=== PATIENT | male | born 1950 | race Caucasian/White ===

== ENCOUNTER → 2016-06-07 | Outpatient (CLI) | payer OTHER, BC ==
[~2016-06-07] VITALS: Ht 172.7 cm; Wt 75.3 kg
[~2016-06-07] MED LIST: ACCUPRIL40 MG PO; AMLODIPINE BESYL5 MG PO; ASPIRIN325; ASPIRIN81 M2 PO; ATORVASTATIN CA10 MG PO; CALCIUM; CENTRUM TABLET1 EACH PO; CRESTOR10 MG PO; CYCLOBENZAPRINE10 MG PO; FENTANYL PA12 MCG/HR TD; FISHOIL; FOSAMAX 70 MG T70 M1 PO; HYDROCODON-ACE1 EAC5 PO; HYDROCODONE-AP1 EAC6 PO; LOPRESSOR 50 MG50 M1 PO; METHADONE HCL5 MG PO; MS CONTIN15 MG PO; NABUMETONE 750750 M1 PO; NEURONTIN600 MG PO; NORCO 10-325 T1 EACH PO; OMEPRAZOLE40 MG PO; OXYCODONE-ACET1 EAC2 PO; OXYCONTIN10 M1 PO; PERCOCET 10-321 EACH; SKELAXIN 800 M800 M1 PO; TOPAMAX 25 MG T25 M1 PG
--- NOTE | ~2016-06-07 | HPC ---
[facility] [address] [address] PAIN MANAGEMENT CONSULTATION Name: REMINGTONNAVID Calero Room #: REG [facility].#: [id number] Admission: 06/07/16 Attend Phys: Abhjiit Fernando MD Discharge: Date of : 48 Report #: [id number] THIS REPORT FOR: //name// CC: Aris Fernando DATE OF SERVICE: 06/07/2016 Follow up visit for chronic pain, multiple spinal surgeries. Management of high risk medication. The patient returns to pain clinic in followup today for his medication. He has been doing exceptionally well. He was last seen in May by my partner, Dr. Alcocer. He has really made a lot of progress over the last 2-3 years. He has been able to travel to [place]. He recently took a 2-week trip through the enjoying trips to [place] including [facility], [place], and throughout the [facility] coast. He seems very positive and upbeat and very pleased with the degree of pain relief that he is receiving from his low dose of methadone. He has been able to wean himself substantially down off of hydrocodone one 5/325 tablet for breakthrough, he used about every 3-4 days. I provided him with a bottle of 30 tablets, again very effective low dose baseline medication. In addition to his medication, he feels that the orthotics that were provided for him have made a huge difference. Good control of his feet has allowed him to ambulate more, the ambulation I think in turn has created a better dynamics throughout his spine and improved core strengthening. All in all, he is just really doing quite well on his current regimen. MEDICATIONS: Include methadone 5 mg b.i.d., nabumetone 750 twice a day, rare hydrocodone for breakthrough, gabapentin 600 mg 4 times daily, metoprolol, quinapril, amlodipine, and Topamax. PHYSICAL EXAMINATION: A very pleasant, upbeat, easy going gentleman. Moves quickly and easily from sitting to standing position. He is on soft sole shoes. He walks without antalgic features. Examination of spinal scars is negative. All are nontender. He has good range of motion in the upper and lower extremities. Only mild myofascial trigger points throughout the trapezius. IMPRESSION: 1. Chronic intractable pain with cervicalgia, well controlled under current medication regimen. We will renew his medications under terms of the opioid agreement. 2. Post-laminectomy syndrome. 3. History of generalized osteoarthritis involving hips and knees. Well controlled with nabumetone. [address] [address] PAIN MANAGEMENT CONSULTATION Name: NAVID MACEDO Room #: REG [facility] [place].#: [id number] Admission: 06/07/16 Attend Phys: Abhijit Fernando MD Discharge: Date of : 48 Report #: [id number] 4. Hypertension, Dr. Aris Santana. PLAN: Follow up in the pain clinic in 3 months. Medications were provided with release date prescriptions for methadone 4 and 8 weeks. Importance of safeguarding medications stressed once again and we talked again today about the opioid crisis issues in the [place]. <ELECTRONICALLY SIGNED> By: Abhijit Fernando MD 06/09/16 1329 [id number] Abhijit Fernando MD /nt
[2016-06-07 09:01] VITALS: BP 111/68
== END | disposition home or self-care (01) ==
LOC: PAIN 06:52
DX: M96.1 Postlaminectomy syndrome, not elsewhere classified (principal); M54.2 Cervicalgia; M19.90 Unspecified osteoarthritis, unspecified site; I10 Essential (primary) hypertension; Z98.890 Other specified postprocedural states; Z87.891 Personal history of nicotine dependence

== ENCOUNTER → 2016-06-15 | Outpatient (CLI) | payer OTHER, BC ==
--- NOTE | ~2016-06-15 | P ---
[facility] [place] [address] PROCEDURE REPORT Name: REMINGTONNAVID Calero Room #: REG [facility]#: [id number] Admission: 06/15/16 Attend Phys: Aris Spicer MD Discharge: Date of : 48 Report #: [id number] THIS REPORT FOR: //name// CC: Aris Spicer BRIEF HISTORY: The patient is a 65-year-old male with history of colon polyps for high risk screening colonoscopy. PREOPERATIVE DIAGNOSIS: High risk screening colonoscopy. POSTOPERATIVE DIAGNOSES: 1. Diminutive polyp, proximal ascending colon. 2. Moderate sigmoid diverticulosis coli. 3. Small internal hemorrhoids. MEDICATIONS: Deep sedation with propofol per anesthesia. SPECIMEN: Proximal ascending colon. ESTIMATED BLOOD LOSS: 3 mL. PROCEDURE: Colonoscopy to cecum and terminal ileum with biopsy. FINDINGS: Prior to propofol sedation, procedure of colonoscopy discussed with the patient as well as potential risks, benefits, and complications. He indicates he understands and desires to proceed. With the patient in left lateral decubitus position, digital examination was completed, which revealed no abnormalities. Subsequently, the Privaris video colonoscope was introduced into the rectum and advanced under direct vision to the cecum. Done with minimal difficulty. The cecum was identified by the ileocecal valve and the appendiceal orifice. I was able to visualize the distal segment of terminal ileum, which was inspected and noted unremarkable. At that point, the scope was slowly withdrawn and careful circumferential views obtained including retroflexing the scope in the ascending colon. Upon slow withdrawal of the scope, the prep was noted to be good. The mucosa was within normal limits, normal vascular pattern, and normal light reflex. In the proximal ascending colon, a diminutive polyp was seen and removed by biopsy. As we withdrew the scope, no additional polypoid lesions were seen. No additional abnormalities were noted until the distal sigmoid colon was reached at which point moderate diverticular disease was identified without endoscopic evidence of diverticulitis. Scope was withdrawn in the rectum. Upon retroflexion, no additional abnormalities were seen. Scope was withdrawn. The patient tolerated the procedure well. [address] [address] PROCEDURE REPORT Name: NAVID MACEDO Room #: REG [facility] Saunders#: [id number] Admission: 06/15/16 Attend Phys: Aris Spicer MD Discharge: Date of : 48 Report #: [id number] CONDITION OF THE PATIENT UPON DISCHARGE: Following procedure, the patient drowsy, aroused, conversant and will be discharged home when fully ambulatory. INSTRUCTIONS TO THE PATIENT AND FAMILY AT THE TIME OF DISCHARGE: One diminutive polyp identified and removed as described above. We will follow up on the path and make a surveillance recommendation. If this is an adenoma, he should return in 5 years. If it is hyperplastic, then 10 years would be indicated. I would suggest high fiber diet for the diverticular disease and hemorrhoids. Last colonoscopy was approximately 5 years ago. Withdrawal time from the cecum was 16 minutes. <ELECTRONICALLY SIGNED> By: Aris Spicer MD 06/15/16 1225 [id number] 1044 Aris Spicer MD /nt
--- NOTE | ~2016-06-15 | S ---
[facility] [place] [address] SURGICAL PATH RPT PROCEDURE Name: NAVID MACEDO Room #: REG [facility] M.R.#: [id number] Admission: 06/15/16 Date of : 48 Discharge: Report #: [id number] Path Case #: [id number] PATHOLOGY REPORT COLLECTION DATE: 06/15/2016 RECEIVED DATE: 06/15/2016 SUBMITTING PHYS: Dr. Aris Spicer OTHER PHYS: Dr. Aris Santana SPECIMEN(S) RECEIVED: A.Polyp proximal ascending colon * * * * * * * * * * * * FINAL DIAGNOSIS: "Polyp proximal ascending colon", biopsy: - Tubular adenoma; no high grade dysplasia. - Prominent reactive appearing lymphoid aggregates also present. (CLW:all; d/t: 06/16/2016) PATHOLOGIST: Tala Prieto M.D. REPORT ELECTRONICALLY SIGNED BY: Tala Prieto M.D. DATE/TIME: 06/16/2016 12:22 * * * * * * * * * * * * GROSS PATHOLOGY: Received in formalin labeled "Navid Macedo and polyp proximal ascending colon," are 3 segments of sinclair soft tissue measuring 1.0 x 0.2 x 0.2 cm in aggregate dimensions and ranging from 0.2 to 0.5 cm in maximum dimension. The specimen is submitted entirely in cassette A1. (TTL; 06/15/2016) CLINICAL HISTORY: History of colon polyps INITIAL CPT CODE(S): A; 03640 Professional services performed by [facility] at [facility] [address] [place] [address] Technical services performed by [facility] at [address] [place] [address] [id number] [facility] [address] [place] [address] SURGICAL PATH RPT PROCEDURE Name: NAVID MACEDO Room #: REG [facility] Saunders#: [id number] Admission: 06/15/16 Date of : 48 Discharge: Report #: [id number] Path Case #: [id number] [facility] [address] [address] PHONE: [phone] DIRECTOR: Deon Brown M.D. * * * END OF REPORT * * *
== END | disposition home or self-care (01) ==
LOC: GI 08:09
DX: Z12.11 Encounter for screening for malignant neoplasm of colon (principal); D12.2 Benign neoplasm of ascending colon; K57.30 Diverticulosis of large intestine without perforation or abscess without bleeding; K64.8 Other hemorrhoids; Z86.010 Personal history of colon polyps
CPT/HCPCS: 62110; 62900

== ENCOUNTER → 2016-09-19 | Outpatient (CLI) | payer OTHER, BC ==
[~2016-09-19] VITALS: Ht 175.3 cm; Wt 77.0 kg
[~2016-09-19] MED LIST changes: +LOVASTAT10 PO
--- NOTE | ~2016-09-19 | HPC ---
[facility] [address] [place] [address] PAIN MANAGEMENT CONSULTATION Name: REMINGTONNAVID Calero Room #: REG [facility] M.R.#: [id number] Admission: 09/19/16 Attend Phys: Otto Alcocer DO Discharge: Date of : 48 Report #: [id number] THIS REPORT FOR: //name// CC: PRAVEEN Fernando MD DATE OF SERVICE: 09/19/2016 DATE OF SERVICE: 09/19/2016 CHIEF COMPLAINT: Chronic back pain status post multiple spinal surgeries. HISTORY OF PRESENT ILLNESS: As you know, patient is a 66-year-old male followed by my partner, Dr. Abhijit Fernando for chronic pain issues, unresolved by multiple spinal surgeries and residual pain issues. He is taking low dose methadone 5 mg twice a day utilizing a hydrocodone 5/325, no more than 1 a day. He is also using cyclobenzaprine for pain control secondary to muscle spasming. He returns today in followup visit requesting one month of medication, so that he can make his next appointment with Dr. Abhijit Fernando. Due to scheduling conflicts, the patient was placed on my schedule today to provide a 1 month prescription for the patient to follow up with Dr. Fernando next month. The patient denies new injury new trauma that may have led to symptoms continuing. ALLERGIES: CONTRAST AGENT IODINE. CURRENT MEDICATIONS: Methadone 10 mg twice day, hydrocodone 5/325 one tab per day p.r.n., cyclobenzaprine 10 mg twice a day, lovastatin 10 mg per day, nabumetone 750 mg twice a day, aspirin 81 mg per day, gabapentin 600 mg 4 times a day, omeprazole 40 mg per day, metoprolol 50 mg once a day, Accupril 40 mg per day, amlodipine 5 mg per day, topiramate 25 mg once a day. SOCIAL HISTORY: The patient denies tobacco, alcohol, IV or illicit drug use. He is unaccompanied today. PHYSICAL EXAMINATION: VITAL SIGNS: Blood pressure 116/68, pulse 70, respiratory rate 16, unlabored. The patient is 100% on room air. Height 5 feet 9 inch tall, weight 169.8 pounds, BMI calculated 25.1. GENERAL: Well developed, well nourished, well hydrated, 66-year-old male. He appears stated age. He is placing current pain score at approximately 1-2/10. HEENT: Normocephalic, atraumatic. Pupils equal, round, reactive to light. He has an antalgic gait. EXTREMITIES: Show no clubbing, no cyanosis, and no edema. MUSCULOSKELETAL: Multiple surgical scars over the lower lumbar spine. [address] [address] PAIN MANAGEMENT CONSULTATION Name: NAVID MACEDO Room #: REG [facility]#: [id number] Admission: 09/19/16 Attend Phys: Otto Alcocer DO Discharge: Date of : 48 Report #: [id number] Palpatory tenderness over the paraspinal musculature of lower lumbar region. No spinous process tenderness. ASSESSMENT: 1. Chronic low back pain. 2. Post-laminectomy syndrome. 3. Generalized osteoarthritis. 4. Chronic intractable pain. 5. Management of high risk medications. PLAN: 1. The patient has returned to our clinic today for one month worth of medication management. The patient is typically follows with Dr. Abhijit Fernando receiving methadone, hydrocodone and cyclobenzaprine for pain control. He states this is working very well. The formula provides good analgesic benefit providing 1-2/10 pain generally. He is denying any side effects to medication and wishes to continue the medication at this time. He was provided 3 months' prescriptions last visit. He was placed on my schedule today due to scheduling conflicts. He will be providing a 1 month prescription with a return to see Dr. Abhijit Fernando October 02. 2. The patient was provided a prescription of methadone 5 mg dose 1 tab p.o. b.i.d., given #60 tablets, no refills. 3. The patient was provided a prescription of hydrocodone 5/325 one tab p.o. every day p.r.n. pain, #30, no refills. 4. The patient was provided a prescription of cyclobenzaprine 10 mg dose 1-2 tabs p.o. at bedtime, #60, no refills. 5. The patient return to see Dr. Abhijit Fernando on schedule date of 10/05/2016 for medication management. By: 0853 [id number] Otto Alcocer, /nt
[2016-09-19 08:29] VITALS: BP 116/68
== END ==
LOC: PAIN 06:51
DX: M15.8 Other polyosteoarthritis (principal); M96.1 Postlaminectomy syndrome, not elsewhere classified; I10 Essential (primary) hypertension; Z87.891 Personal history of nicotine dependence

== ENCOUNTER → 2016-10-05 | Outpatient (CLI) | payer OTHER, BC ==
[~2016-10-05] VITALS: Ht 172.7 cm; Wt 75.0 kg
--- NOTE | ~2016-10-05 | HPC ---
[facility] [place] [address] PAIN MANAGEMENT CONSULTATION Name: NAVID MACEDO Room #: REG [facility].#: [id number] Admission: 10/05/16 Attend Phys: Abhijit Fernando MD Discharge: Date of : 48 Report #: [id number] THIS REPORT FOR: //name// CC: Aris Fernando DATE OF SERVICE: 10/05/2016 DATE OF REGISTRATION: 10/05/2016. REASON FOR VISIT: Followup visit for chronic pain with multiple spinal surgeries. SUBJECTIVE: The patient has been on a longstanding opioid agreement in our clinic. He was seen just a month ago by my partner who provided him with 1 month of medication. I typically provide him with 3 months of medication as long as there are no red flags, and there are certainly none at this time. His pain impact scores have been markedly reduced by the use of a regular dose of pain medication, which he takes carefully under terms of our agreement. In addition, he uses cyclobenzaprine 2 tablets at bedtime. I have talked to Dr. Santana about this, and we have agreed that this regimen is reasonable. He has no significant side effects. He is here today reporting that his activities are good, although he finds that it is a little disappointing that he cannot do quite as much heavy lifting as he used to. 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 He has had to require assistance, which I think is prudent. Today, he reports his pain is 0/10. Medication is working extremely well. We will continue the same dose. PHYSICAL EXAMINATION: GENERAL: Pleasant, alert and oriented, without signs of overmedication. VITAL SIGNS: Blood pressure 104/71, heart rate 64. BMI is 25. EXTREMITIES: He moves easily from a standing position. He is not at fall risk. His gait is stable. IMPRESSION: 1. Chronic intractable low back pain status post multiple lumbar and cervical surgeries. 2. Management of high risk medications. PLAN: I renewed his medications under terms of our opioid agreement. He was given methadone 5 mg b.i.d., hydrocodone 5/325 one tablet as needed for [address] [address] PAIN MANAGEMENT CONSULTATION Name: NAVID MACEDO Room #: REG [facility].#: [id number] Admission: 10/05/16 Attend Phys: Abhijit Fernando MD Discharge: Date of : 48 Report #: [id number] breakthrough pain daily. He does not take this every day and cyclobenzaprine 10 mg 2 tablets at bedtime. By: [id number] Abhijit Fernando MD /nt
[2016-10-05 14:50] VITALS: BP 104/71
== END | disposition home or self-care (01) ==
LOC: PAIN 07:34
DX: G89.29 Other chronic pain (principal)

== ENCOUNTER → 2017-01-04 | Outpatient (CLI) | payer OTHER, BC ==
[~2017-01-04] VITALS: Ht 175.3 cm; Wt 75.4 kg
[~2017-01-04] MED LIST changes: +LYRICA 75 MG CA75 MG PO
--- NOTE | ~2017-01-04 | HPC ---
[facility] [place] [address] PAIN MANAGEMENT CONSULTATION Name: REMINGTONNAVID Room #: REG [facility].#: [id number] Admission: 01/04/17 Attend Phys: Abhijit Fernando MD Discharge: Date of : 48 Report #: [id number] THIS REPORT FOR: //name// CC: Aris Fernando DATE OF SERVICE: 01/04/2017 Follow up visit for chronic pain following multiple spinal surgeries. The patient is in the clinic today for his medication. I see him in 3-month intervals. He is under an opioid agreement, which he follows very carefully and closely. He was last seen 3 months ago. MEDICATIONS: Methadone 5 mg twice daily, hydrocodone 5/325 t.i.d. and cyclobenzaprine 10 mg 2 tablets taken at bedtime. He has had no problems with the medication. Denies any significant side effects. His pain score is 1. He has been very stable for a number of months now. He talked to Dr. Santana about his use of gabapentin, which is at maximum dose. Because of a short period of aggravation of his left leg pain, Dr. Santana placed him on Lyrica 75 mg b.i.d., which worked very nicely. Pain is now gone and we talked today about tapering off the Lyrica, going back on it if necessary. PHYSICAL EXAMINATION: He is bright and alert, does not seem depressed or anxious at all. His blood pressure is 106/67, heart rate is 73, and BMI of 24.5. Back is minimally tender. He has some limited range of motion due to his previous fusion. IMPRESSION: 1. Chronic low back pain status post multiple surgeries involving the lumbar region and cervicalgia following cervical fusion. 2. Management of high risk medications under terms of an opioid agreement. The importance of safeguarding all medications discussed. A followup visit scheduled in the pain clinic in 3 months. We reflected today on the remarkable progress he has made since he was first seen in our clinic. If I had unable to project positive outcome for him in 2011, something like this exclamation point. We will continue with his medications as long as they continue to meet our goals of providing good analgesia with minimal side effects. He is safeguarding his medications carefully as we have reviewed the important concerns regarding opioid crisis in [place]. By: [id number] 20 Abhijit Fernando MD /nt
[2017-01-04 10:50] VITALS: BP 106/67
== END | disposition home or self-care (01) ==
LOC: PAIN 07:18
DX: G89.29 Other chronic pain (principal); M54.2 Cervicalgia; Z98.890 Other specified postprocedural states; Z79.891 Long term (current) use of opiate analgesic; Z87.891 Personal history of nicotine dependence; Z79.82 Long term (current) use of aspirin; Z79.899 Other long term (current) drug therapy

== ENCOUNTER → 2017-08-01 | Outpatient (CLI) | payer OTHER, BC ==
[~2017-08-01] VITALS: Ht 175.3 cm; Wt 74.8 kg
--- NOTE | ~2017-08-01 | HPC ---
[facility] [place] [address] PAIN MANAGEMENT CONSULTATION Name: REMINGTONNAVID Calero Room #: REG [facility]..#: [id number] Admission: 08/01/17 Attend Phys: Abhijit Fernando MD Discharge: Date of : 48 Report #: [id number] THIS REPORT FOR: //name// CC: PRAVEEN Fernando DATE OF SERVICE: 08/01/2017 Followup visit for medication management. I am seeing the patient for the first time in several months. He saw my partner, Dr. Christiano Bradshaw back in April. He continues to do exceptionally well. He is back at work. His pain is well controlled. He is looking forward to spring and summer in hopes that he may be able to return to some gardening. He is grateful for the medications, which we provide for him, which have made a big difference in helping control his pain. He uses cyclobenzaprine at night 10 mg 2 tablets to aid with sleep. His pain is controlled nicely with methadone 5 mg twice a day and hydrocodone 5/325 one tablet taken in anticipation of aggressive activities. With this, he has been unable to keep his pain score at a level of 2. PQRS review shows that he has only mild osteoarthritis. His BMI is kept under good control and he looks fit with a BMI of 24.4. Dr. Santana treats him for hypertension. He has a blood pressure of 134/82, heart rate 69. Pain intensity 2. Opioid risk tool was reviewed and he has a low risk of addiction potential. He is on an opioid contract, which was signed in 11/2015 and reviewed at each visit. He understands the importance of safeguarding all of his medications and managing side effects. IMPRESSION: 1. Chronic low back pain and cervicalgia status post multiple surgeries involving the lumbar and cervical region with cervical fusion. He had some complications of infection after a cervical fusion, but has recovered nicely. 2. Management of high risk medications under terms of written opioid agreement. PLAN: Follow up in the pain clinic in 3 months. I have renewed his medications and reviewed all other medications before discharge. <ELECTRONICALLY SIGNED> By: Abhijit Fernando MD 09/10/17 1408 1716 [id number] Abhijit Fernando MD /nt
[2017-08-01 13:48] VITALS: BP 134/82
== END ==
LOC: PAIN 07-30 11:35
DX: G89.29 Other chronic pain (principal); M54.5 Low back pain; M54.2 Cervicalgia; F11.90 Opioid use, unspecified, uncomplicated; Z98.890 Other specified postprocedural states

== ENCOUNTER → 2018-08-01 | Outpatient (CLI) | payer OTHER ==
[~2018-08-01] VITALS: Ht 172.7 cm; Wt 73.1 kg
[~2018-08-01] MED LIST changes: +FLEXERIL PO
--- NOTE | ~2018-08-01 | HPC ---
[facility] [address] [place] [address] PAIN MANAGEMENT CONSULTATION Name: REMINGTONNAVID Abdias Room #: REG [facility] M.R.#: [id number] Admission: 08/01/18 ������������������ Attend Phys: Savannah Hernandez Discharge: ������������������ Date of : 48 Report #: [id number] THIS REPORT FOR: //name// CC: Savannah Barroslap DATE OF SERVICE: 08/01/2018 CHIEF COMPLAINT: Chronic back pain, post-laminectomy with fusion. HISTORY OF PRESENT ILLNESS: The patient returns to the pain clinic today for a refill of his medications for his ongoing low back and bilateral leg pain. He tells me that he is doing well today. His pain score is about 2-3. He has been slowly gaining some weight from his lung infection that he had, said he is feeling much better. Said the weather is making his pain worse on some days that his medications are very helpful. He denies any problems with constipation or daytime sleepiness. He would like a refill of his medications today. CURRENT ALLERGIES: IV DYE AND IODINE. MEDICATION LIST: Methadone 5 mg b.i.d., hydrocodone 5 mg p.r.n., Flexeril 10 mg 1 to 2 tablets at bedtime, Lyrica 75 mg daily, lovastatin 10 mg daily, nabumetone 750 mg b.i.d., aspirin 81 mg daily, gabapentin 600 mg 4 times a day, omeprazole 40 mg daily, Lopressor 50 mg daily, quinapril 40 mg daily, amlodipine 5 mg daily, Topamax 25 mg daily. PQRS: 1. He has a history of osteoarthritis in his lower backs and in his bilateral hips. He denies any rheumatoid arthritis. 2. Height is 5 feet 8 inches, weight is 161. BMI is 24.5. 3. Vital signs: Blood pressure 109/62, pulse is 53, respirations 14, oxygen sat 98%. 4. Pain score 2-3/10. 5. Fall risk: Denies dizziness, does not need help walking or standing and has not fallen in the last 3 months. 6. The patient is not on a blood thinner, does take antihypertensive medicines. 7. Opioid therapy is greater than 6 weeks; therefore, an opioid signed contract is on the chart. 8. Risk assessment tool is low. His functional assessment is . 9. Recreational drug use: The patient denies. He is a former smoker and does not drink alcohol. We checked the prescription monitoring system, the patient is filling appropriately, doctors within our clinic. We will check a buccal drug screen on his next visit. He tells me he safeguards his medicine at all times. [address] [address] PAIN MANAGEMENT CONSULTATION Name: NAVID MACEDO Room #: REG [facility] Saunders#: [id number] Admission: 08/01/18 ������������������ Attend Phys: Savannah Hernandez Discharge: ������������������ Date of : 48 Report #: [id number] PHYSICAL EXAMINATION: GENERAL: This is a well-developed, well-nourished 67-year-old gentleman who appears his stated age. He is alert and orientated x 3. He is a good historian. HEENT: Normocephalic, atraumatic. Extraocular eye muscles are intact. Mucous membranes are moist and hearing is adequate. NECK: Without JVD or adenopathy. MUSCULOSKELETAL: The patient moves from sitting to standing without difficulty. Able to walk and ambulate in the room without difficulty. His lower extremity strength judged to be 5/5 in all major muscle groups. IMPRESSION: 1. Chronic back pain, post-laminectomy with fusion. 2. History of right-sided pleural effusion. 3. Cervicalgia, status post multiple surgeries with cervical fusion. 4. Opioid-induced constipation. 5. Medical management under written opioid agreement. We reviewed the fact that opiate medications are being used to provide analgesia adequate to support activities of daily living, not attempting to achieve a specific pain score on the 0-10 Visual Analog Scale. The current opiate medications are providing sufficient analgesia to allow the patient to participate in activities of daily living. The patient is not exhibiting any aberrant behavior suggestive of drug diversion. The patient is not having any adverse reactions to medications. The patient is not suffering from daytime somnolence or mental acuity changes. The patient is managing opiate-induced constipation with appropriate sfjv-rfg-oerxitz agents and dietary considerations. The patient was counseled on concern for caution with operating a motor vehicle while using opiate medications. A physical exam was performed and the patient's functional status was evaluated. All patients with back pain were advised against the bed rest greater than 4 days and were advised to return to normal activities. Pain score assessment was noted and the treatment plan was reviewed with the patient. All current medications, both prescribed and OTC were reviewed and reconciled on the electronic medical record. Tobacco screening was accomplished and smoking cessation was advised when indicated. BMI was noted and diet/exercise modification was recommended for all patients following outside normal parameters. I reviewed with the patient today their responsibilities to safeguard prescription medications, reviewed their responsibility to utilize medications only as prescribed by the physician. They are to seek and receive pain medications only from 1 physician group ([facility]). They are to use 1 pharmacy and keep the clinic informed if they change pharmacies. Their responsibilities include making followup visits in a timely fashion and to avoid [address] [address] PAIN MANAGEMENT CONSULTATION Name: NAVID MACEDO Room #: REG [facility].R.#: [id number] Admission: 08/01/18 ������������������ Attend Phys: Savannah PAIZ David Discharge: ������������������ Date of : 48 Report #: [id number] abrupt discontinuation of medication usage. Their responsibilities further include bringing their medications (bottles from the pharmacy with residual pills) to the visit for possible confirmation of pill counts and the patient understands it is their responsibility to submit to random drug screens to ensure both that the medications prescribed are present, and that no other controlled substances are present. All prescriptions provided today were generated electronically. PLAN: 1. We reviewed treatment options with the patient today. The patient tells me he has been doing well with his current methadone dose to 5 mg twice a day and occasional hydrocodone. His current MME is 40 MME per day, scripts given for 3 months of his methadone and 30 tablets of his hydrocodone. 2. We discussed him weaning off his Flexeril. The patient tells me he has not tried this yet. He said, "I will be more intentional of doing this in the next few months." Script given for Flexeril 10 mg #60 to take one to two tablets at bedtime with [address] Abhijit Fernando did come and see the patient and collaborated with care today. The patient will be seen in 3 months. At that time, we will do a drug screen on this patient. ��������������������������������������������� ���������������������������������������� By: ��������������������������������������������� 1205 0312 Savannah stevens
[2018-08-01 10:00] VITALS: BP 109/62
--- NOTE | 2018-08-01 10:19 | NUR ---
Pain Clinic Assessment: 1. History of Osteoarthritis: Not Applicable History of Rheumatoid Arthritis: Not Applicable 2. Height: 5 ft. 8 in. 172.7 cm. Weight: 161.2 lb. oz. 73.120 kg. Patient's BMI: 24.5 3. Vital Signs: BP: 109/62 Pulse: 53 Resp: 14 Temp: 02 Sat: 98 ECG Mon: 4. Pain Intensity: 2-3 5. Fall Risk: Dizziness: N Needs help standing or walking: N Fallen in the last 3 months: N Fall risk comments: 6. Patient on Blood Thinner: None 7. History of Hypertension: Y 8. Opioid Therapy greater than 6 weeks: Y Opiate Contract Signed: 11/24/15 9. Risk Assessment Tool Provided: Opioid Risk Tool 10. Functional Assessment Tool: 11. Recreational Drug Use: Never Drug Type: Tobacco Use: Former Smoker Tobacco Type: Amount or Packs/day: How Many Years: Alcohol Use: No Frequency: Quant:
== END ==
LOC: PAIN 07:07
DX: M43.26 Fusion of spine, lumbar region (principal); M96.1 Postlaminectomy syndrome, not elsewhere classified; M43.22 Fusion of spine, cervical region; M54.2 Cervicalgia; F11.99 Opioid use, unspecified with unspecified opioid-induced disorder; Z87.09 Personal history of other diseases of the respiratory system; Z79.899 Other long term (current) drug therapy

== ENCOUNTER → 2018-11-04 | Outpatient (CLI) | payer OTHER, BC ==
[~2018-11-04] VITALS: Ht 172.7 cm; Wt 71.6 kg
[2018-11-04 09:01] VITALS: BP 104/63
--- NOTE | 2018-11-04 09:23 | NUR ---
Pain Clinic Assessment: 1. History of Osteoarthritis: Not Applicable History of Rheumatoid Arthritis: Not Applicable 2. Height: 5 ft. 8 in. 172.7 cm. Weight: 157.8 lb. oz. 71.578 kg. Patient's BMI: 24.0 3. Vital Signs: BP: 104/63 Pulse: 72 Resp: 16 Temp: 02 Sat: 97 ECG Mon: 4. Pain Intensity: 2-3 5. Fall Risk: Dizziness: N Needs help standing or walking: N Fallen in the last 3 months: Y Fall risk comments: 6. Patient on Blood Thinner: None 7. History of Hypertension: Y 8. Opioid Therapy greater than 6 weeks: Y Opiate Contract Signed: 11/24/15 9. Risk Assessment Tool Provided: low-0 10. Functional Assessment Tool: 11. Recreational Drug Use: Never Drug Type: Tobacco Use: Former Smoker Tobacco Type: Amount or Packs/day: How Many Years: Alcohol Use: No Frequency: Quant:
--- NOTE | 2018-11-05 09:15 | HPC ---
[facility] [address] [place] [address] PAIN MANAGEMENT CONSULTATION Name: NAVID MACEDO Room #: REG [facility]..#: [id number] Admission: 11/04/18 ������������������ Attend Phys: Savannah Hernandez Discharge: ������������������ Date of : 48 Report #: [id number] THIS REPORT FOR: //name// CC: Savannah Santana DATE OF SERVICE: 11/04/2018 CHIEF COMPLAINT: Chronic back pain, post-laminectomy with fusion and neck pain. HISTORY OF PRESENT ILLNESS: This is a very pleasant 68-year-old gentleman who returns to the pain clinic today for refill of his medications for his ongoing lower back pain and complaints of neck pain today. He tells me that he did fall off a ladder a few weeks ago. He is slowly getting better. He did have to take a few extra hydrocodone initially after the fall that he is not taking those any longer. He usually takes those very sparingly. He tells me he does have a sore on his leg that is slowly healing. He also complains of low back pain today. His pain score is 2/3, worse with lifting anything heavy and the weather changes that the medications are very helpful in controlling his pain. ALLERGIES: CONTRAST DYE AND IODINE. MEDICATIONS: Methadone 5 mg b.i.d., hydrocodone 5/325 sparingly, Flexeril 10 mg at bedtime, Lyrica 75 mg daily, lovastatin 10 mg daily, nabumetone 750 mg, 81 mg aspirin, gabapentin 600 mg, omeprazole 40 mg, Lopressor 50 mg, Accupril 40 mg, amlodipine 5 mg, and Topamax 25 mg. PQRS: 1. He has a history of osteoarthritis in his lower back and his bilateral hips. He denies any rheumatoid arthritis. 2. Height is 5 feet 8 inches, weight is 157, BMI is 24. 3. VITAL SIGNS: 104/63, pulse is 72, respirations 16, oxygen sat is 97. 4. Pain score is 2-3. 5. Fall risk. Denies dizziness, does not need help walking or standing and has fallen in the last 3 months requiring no medical attention. 6. The patient is not on any blood thinners. He does have a history of hypertension. 7. Opioid therapy is greater than 6 weeks; therefore, an opioid signed contract is on the chart. His risk assessment tool is low. Functional assessment . 8. Recreational drug use, he denies. He is a former smoker and does not drink alcohol. We did check the prescription monitoring system, which is appropriate for medications from our physician and we did do a random drug screen on this patient today. [address] [address] PAIN MANAGEMENT CONSULTATION Name: NAVID MACEDO Room #: REG [facility] Saunders#: [id number] Admission: 11/04/18 ������������������ Attend Phys: Savannah Hernandez Discharge: ������������������ Date of : 48 Report #: [id number] PHYSICAL EXAMINATION: GENERAL: This is a well-developed, well-nourished 68-year-old gentleman who appears his stated age. Placing his pain score today at 2/3. He is alert and orientated and he is a good historian. HEENT: Normocephalic, atraumatic. Extraocular eye muscles are intact. Mucous membranes are moist. Hearing is adequate. NECK: Without JVD or adenopathy. He does have limited range of motion on lateral tilt. Complains of tenderness at the base of his neck that radiates into his upper shoulders. MUSCULOSKELETAL: The patient moves from sitting to standing without any difficulty. He walks without any difficulty. His lower extremity strength judged to be 5/5 with all major muscle groups, slight tenderness in his lumbar region. IMPRESSION: 1. Chronic back pain, post-laminectomy with fusion. 2. History of right-sided pleural effusion. 3. Cervicalgia status post multiple surgeries with fusion. 4. Neck pain related to recent fall. 5. Opioid-induced constipation. 6. Medical management under terms of written opioid agreement and methadone therapy. We reviewed the fact that opiate medications are being used to provide analgesia adequate to support activities of daily living, not attempting to achieve a specific pain score on the 0-10 Visual Analog Scale. The current opiate medications are providing sufficient analgesia to allow the patient to participate in activities of daily living. The patient is not exhibiting any aberrant behavior suggestive of drug diversion. The patient is not having any adverse reactions to medications. The patient is not suffering from daytime somnolence or mental acuity changes. The patient is managing opiate-induced constipation with appropriate btkh-awc-uediiog agents and dietary considerations. The patient was counseled on concern for caution with operating a motor vehicle while using opiate medications. A physical exam was performed and the patient's functional status was evaluated. All patients with back pain were advised against the bed rest greater than 4 days and were advised to return to normal activities. Pain score assessment was noted and the treatment plan was reviewed with the patient. All current medications, both prescribed and OTC were reviewed and reconciled on the electronic medical record. Tobacco screening was accomplished and smoking cessation was advised when indicated. BMI was noted and diet/exercise modification was recommended for all patients following outside normal parameters. I reviewed with the patient today their responsibilities to [address] [address] PAIN MANAGEMENT CONSULTATION Name: NAVID MACEDO Room #: REG [facility]#: [id number] Admission: 11/04/18 ������������������ Attend Phys: Savannah Hernandez Discharge: ������������������ Date of : 48 Report #: [id number] prescription medications, reviewed their responsibility to utilize medications only as prescribed by the physician. They are to seek and receive pain medications only from 1 physician group ( [facility]). They are to use 1 pharmacy and keep the clinic informed if they change pharmacies. Their responsibilities include making followup visits in a timely fashion and to avoid abrupt discontinuation of medication usage. Their responsibilities further include bringing their medications (bottles from the pharmacy with residual pills) to the visit for possible confirmation of pill counts and the patient understands it is their responsibility to submit to random drug screens to ensure both that the medications prescribed are present, and that no other controlled substances are present. All prescriptions provided today were generated electronically. PLAN: 1. We discussed treatment options with the patient today. He is doing quite well with his medication management, though he did have to take some extra hydrocodone from a recent fall that he had off a ladder. The patient tells me he will be more careful not trying to do things that he should not be doing and keep a phone with him at all times. He did not require any medical attention after his fall. 2. Scripts given for methadone 5 mg b.i.d., #60 for today, 4 and 8-week release and hydrocodone 5/325, #30 that he does take sparingly; Flexeril 10 mg at bedtime, #60, one additional refill was also given. 3. Dr. Abhijit Fernando did come and see the patient today. The patient's morphine milliequivalent is 30 mg according to the CDC guidelines. The patient denies any overmedication or constipation issues. 4. The patient will follow up in 3 months' time. He will call for an appointment. 5. Dr. Fernando did see the patient and collaborated care. ��������������������������������������������� <ELECTRONICALLY SIGNED> ���������������������������������������� By: Savannah Hernandez ��������������������������������������������� 11/05/18 0915 [id number] 0501 Savannah Hernandez /nt
== END ==
LOC: PAIN 06:36
DX: M54.2 Cervicalgia (principal); G89.29 Other chronic pain; K59.03 Drug induced constipation; T40.2X5A Adverse effect of other opioids, initial encounter; Y92.89 Other specified places as the place of occurrence of the external cause; Z79.891 Long term (current) use of opiate analgesic

== ENCOUNTER → 2019-02-10 | Outpatient (CLI) | payer OTHER, BC ==
[~2019-02-10] VITALS: Ht 172.7 cm; Wt 75.2 kg
[~2019-02-10] MED LIST changes: +NORCO 5-325 TA1 EAC1 PO
[2019-02-10 08:45] VITALS: BP 130/81
--- NOTE | 2019-02-10 08:46 | NUR ---
Pain Clinic Assessment: 1. History of Osteoarthritis: Not Applicable History of Rheumatoid Arthritis: Not Applicable 2. Height: 5 ft. 8 in. 172.7 cm. Weight: 165.8 lb. oz. 75.206 kg. Patient's BMI: 25.2 3. Vital Signs: BP: 130/81 Pulse: 66 Resp: 16 Temp: 02 Sat: 97 ECG Mon: 4. Pain Intensity: 2-3 5. Fall Risk: Dizziness: N Needs help standing or walking: N Fallen in the last 3 months: N Fall risk comments: 6. Patient on Blood Thinner: None 7. History of Hypertension: Y 8. Opioid Therapy greater than 6 weeks: Y Opiate Contract Signed: 11/24/15 9. Risk Assessment Tool Provided: low-0 10. Functional Assessment Tool: 11. Recreational Drug Use: Never Drug Type: Tobacco Use: Former Smoker Tobacco Type: Amount or Packs/day: How Many Years: Alcohol Use: No Frequency: Quant:
--- NOTE | 2019-02-11 13:35 | HPC ---
[facility] [address] [address] PAIN MANAGEMENT CONSULTATION Name: REMINGTONNAVID Abdias Room #: REG [facility]..#: [id number] Admission: 02/10/19 ������������������ Attend Phys: Savannah Hernandez Discharge: ������������������ Date of : 48 Report #: [id number] THIS REPORT FOR: //name// CC: Savannah Santana DATE OF SERVICE: 02/10/2019 CHIEF COMPLAINT: Chronic back pain, post-laminectomy with fusion. HISTORY OF PRESENT ILLNESS: This is a very pleasant 68-year-old gentleman who returns to the pain clinic today for refill of his medications that he uses to help his ongoing low back pain today. Today, the patient reports his pain score is 2/3. He tells me he is doing quite well. His pain is located in his low back that does radiate into his bilateral legs. He tells me that lifting heavy objects does flare his pain, which he recently did when he was busy working at [employer], moved some garments that were extremely heavy. He tells me that his back pain did increase for several weeks, but has finally calmed back down. He finds his medication very helpful. He only requires a few hydrocodone, which he did have to take during this recent flare. The patient tells me he has some problems with constipation occasionally, but is able to control that with qysk-lfw-dmjvire medications. Today, he would like a refill of his methadone and hydrocodone. ALLERGIES: CONTRAST DYE and IODINE. CURRENT LIST OF MEDICATIONS: Flexeril 10 mg, methadone 5 mg b.i.d., hydrocodone 5/325 p.r.n., Lyrica 75 mg daily, lovastatin, nabumetone, aspirin, gabapentin, omeprazole, Lopressor, quinapril, amlodipine and Topamax. PQRS: 1. He has a history of osteoarthritis in his lower back and bilateral hips. Denies any rheumatoid arthritis. 2. Height is 5 feet 8 inches, weight is 165, BMI is 25. 3. Vital signs 130/81, pulse is 66, respirations 16, oxygen sat is 97. 4. Pain score is 2-3. 5. Fall risk. Denies dizziness, does not need help walking or standing, has not fallen in the last 3 months. 6. The patient is not on any blood thinners, but does take medicine for hypertension. 7. Opiate therapy is greater than 6 weeks; therefore, an opioid signed contract is on the chart. Risk assessment tool is low. Functional assessment is 21/70. 8. Recreational drug use, he denies. He is a former smoker and does not drink alcohol. We did check the prescription monitoring system[place] [address] PAIN MANAGEMENT CONSULTATION Name: NAVID MACEDO Room #: REG [facility] Saunders#: [id number] Admission: 02/10/19 ������������������ Attend Phys: Savannah IZABEL Hernandez Discharge: ������������������ Date of : 48 Report #: [id number] appropriately for his medications in a timely fashion. There is a recent drug screen on the chart that is appropriate as well. PHYSICAL EXAMINATION: GENERAL: This is a well-developed, well-nourished 68-year-old gentleman who appears his stated age, placing his current pain score today at 2-3. His affect is appropriate. HEENT: Normocephalic, atraumatic. Extraocular eye muscles are intact. Mucous membranes are moist. NECK: Without adenopathy or JVD. MUSCULOSKELETAL: The patient moves from sitting to standing without difficulty. He ambulates with a normal walk. His lower extremity strength judged to be 5/5 in all major muscle groups. Does complain of tenderness across his lumbar region with pain that does radiate into his bilateral legs. IMPRESSION: 1. Chronic back pain, post-laminectomy with fusion. 2. Cervicalgia status post multiple surgeries with cervical fusion. 3. Opioid-induced constipation. 4. Management of high risk medications under terms of written opioid agreement. We reviewed the fact that opiate medications are being used to provide analgesia adequate to support activities of daily living, not attempting to achieve a specific pain score on the 0-10 Visual Analog Scale. The current opiate medications are providing sufficient analgesia to allow the patient to participate in activities of daily living. The patient is not exhibiting any aberrant behavior suggestive of drug diversion. The patient is not having any adverse reactions to medications. The patient is not suffering from daytime somnolence or mental acuity changes. The patient is managing opiate-induced constipation with appropriate gall-zko-nvkmftf agents and dietary considerations. The patient was counseled on concern for caution with operating a motor vehicle while using opiate medications. A physical exam was performed and the patient's functional status was evaluated. All patients with back pain were advised against the bed rest greater than 4 days and were advised to return to normal activities. Pain score assessment was noted and the treatment plan was reviewed with the patient. All current medications, both prescribed and OTC were reviewed and reconciled on the electronic medical record. Tobacco screening was accomplished and smoking cessation was advised when indicated. BMI was noted and diet/exercise modification was recommended for all patients following outside normal parameters. I reviewed with the patient today their responsibilities to safeguard prescription medications, reviewed their responsibility to utilize medications only as prescribed by the physician. They are to seek and receive pain [address] [address] PAIN MANAGEMENT CONSULTATION Name: NAVID MACEDO Room #: REG [facility].#: [id number] Admission: 02/10/19 ������������������ Attend Phys: Savannah Hernandez Discharge: ������������������ Date of : 48 Report #: [id number] medications only from 1 physician group ( [facility]). They are to use 1 pharmacy and keep the clinic informed if they change pharmacies. Their responsibilities include making followup visits in a timely fashion and to avoid abrupt discontinuation of medication usage. Their responsibilities further include bringing their medications (bottles from the pharmacy with residual pills) to the visit for possible confirmation of pill counts and the patient understands it is their responsibility to submit to random drug screens to ensure both that the medications prescribed are present, and that no other controlled substances are present. All prescriptions provided today were generated electronically. PLAN: 1. We discussed treatment options with the patient today. The patient is doing quite well with his current methadone 5 mg twice a day and occasional hydrocodone. His current morphine mEq is 40 MME per day, well below the CDC guidelines. Scripts were refilled today for his methadone 5 mg, #60 for today, 4-week and 8-week release; 1 hydrocodone 5/325, #30 script was given as well as Flexeril 10 mg 60 with one additional refill. 2. The patient will continue to try ezvf-ofu-galsnob medicines for his ongoing constipation issues that he has as a result of his narcotics. I encouraged him that if he does find that it becomes problematic to call our office, we would gladly call him in some medicine for opioid-induced constipation. The patient feels at this time he is able to control that with his kzqe-weo-vepmnbp medications. 3. Dr. Abhijit Fernando did see the patient as well today and collaborated care. The patient will return in 3 months. ��������������������������������������������� <ELECTRONICALLY SIGNED> ���������������������������������������� By: Savannah Hernandez ��������������������������������������������� 02/11/19 1335 0914 [id number] Savannah Hernandez /nt
== END ==
LOC: PAIN 06:38
DX: M54.9 Dorsalgia, unspecified (principal); M54.2 Cervicalgia; M96.1 Postlaminectomy syndrome, not elsewhere classified; K59.03 Drug induced constipation; T40.2X5A Adverse effect of other opioids, initial encounter; Y92.89 Other specified places as the place of occurrence of the external cause; Z91.041 Radiographic dye allergy status; Z79.899 Other long term (current) drug therapy; Z79.891 Long term (current) use of opiate analgesic

== ENCOUNTER → 2019-05-08 | Outpatient (CLI) | payer OTHER, BC ==
[~2019-05-08] VITALS: Ht 172.7 cm; Wt 75.1 kg
[2019-05-08 14:29] VITALS: BP 125/68
--- NOTE | 2019-05-08 14:49 | NUR ---
Pain Clinic Assessment: 1. History of Osteoarthritis: SPINE History of Rheumatoid Arthritis: YES PER MARION 2. Height: 5 ft. 8 in. 172.7 cm. Weight: 165.6 lb. oz. 75.116 kg. Patient's BMI: 25.2 3. Vital Signs: BP: 125/68 Pulse: 70 Resp: 16 Temp: 02 Sat: 96 ECG Mon: 4. Pain Intensity: 4 5. Fall Risk: Dizziness: N Needs help standing or walking: N Fallen in the last 3 months: N Fall risk comments: 6. Patient on Blood Thinner: None 7. History of Hypertension: Y 8. Opioid Therapy greater than 6 weeks: Y Opiate Contract Signed: 11/24/15 9. Risk Assessment Tool Provided: low-0 10. Functional Assessment Tool: 11. Recreational Drug Use: Never Drug Type: Tobacco Use: Former Smoker Tobacco Type: Amount or Packs/day: How Many Years: Alcohol Use: No Frequency: Quant:
--- NOTE | 2019-05-09 08:56 | HPC ---
[facility] [address] [place] [address] PAIN MANAGEMENT CONSULTATION Name: REMINGTONNAVID Abdias Room #: REG [facility]..#: [id number] Admission: 05/08/19 Attend Phys: Savannah Hernandez Discharge: Date of : 48 Report #: [id number] THIS REPORT FOR: //name// CC: Savannah Fernando MD DATE OF SERVICE: 05/08/2019 CHIEF COMPLAINT: Chronic back pain, post-laminectomy with fusion. HISTORY OF PRESENT ILLNESS: This is a very pleasant 68-year-old gentleman who returns to the pain clinic today for refill of his medications that he uses to help treat his ongoing low back pain, bilateral leg pain. He feels like his leg pain had been getting worse recently. He is seen in [place] in the past and is going to go back to see those physicians again in August. It had been 3 years since he had last visited with the doctors at the [facility]. Today, the patient reports his pain score 4/10. He did "tweak his back yesterday by picking up some fabric". He feels that he will probably be sore for several days because he did this. He knows that he should not be doing these things, but he was trying to be helpful and he is paying the [place] for the next couple of days. He feels that also weather does affect his pain as well, but mostly lifting heavy objects. He feels the medications are very beneficial. Denies any problems with constipation or daytime sleepiness from this medication and would like to have that refilled again today. ALLERGIES: CONTRAST DYE AND IODINE. CURRENT LIST OF MEDICATIONS: Flexeril 10 mg b.i.d., methadone 5 mg b.i.d., hydrocodone 5/325 p.r.n., Lyrica 75 mg daily, lovastatin 10 mg daily, nabumetone 750 mg daily, aspirin, gabapentin 600 mg q.i.d., omeprazole, Lopressor 50 mg daily, Accupril 40 mg daily, amlodipine 5 mg daily and Topamax 25 mg daily. PQRS: 1. He has a history of osteoarthritis in his spine and bilateral hips. He has rheumatoid arthritis as well. 2. Height is 5 feet 8 inches, weight is 165, BMI is 25. 3. Vital signs 125/68, pulse is 70, respirations 16, oxygen sat is 96. 4. Pain score is 4/10. 5. Denies dizziness, does not need help walking or standing, has not fallen in the last 3 months. 6. The patient is not on any blood thinners, but does have history of hypertension. 7. Opiate therapy is greater than 6 weeks; therefore, an opiate signed contract is on the chart. Risk assessment tool is low. Functional assessment is . [address] [address] PAIN MANAGEMENT CONSULTATION Name: NAVID MACEDO [id number] Admission: 05/08/19 Attend Phys: Savannah Hernandez Discharge: Date of : 48 Report #: [id number] 8. Recreational drug use, he denies. He is a former smoker and does not drink alcohol. According to the prescription monitoring system, the patient is filling appropriately for his medications. He is due for those this week. He does have a recent drug screen on the chart that is appropriate as well for his medications. He reports he safeguards his meds at all times. PHYSICAL EXAMINATION: GENERAL: This is a well-developed, well-nourished 68-year-old gentleman who appears his stated age, placing his current pain score at 4/10 today. HEENT: Normocephalic, atraumatic. Extraocular eye muscles are intact. Mucous membranes are moist. NECK: Without adenopathy or JVD. MUSCULOSKELETAL: He has tenderness in his lumbosacral region today. Pain radiates from his lower back down his bilateral legs following the L3-L4, L4-L5 dermatomal distribution. His lower extremity strength is judged to be 5/5 for all major muscle groups. He walks with a normal gait. IMPRESSION: 1. Chronic back pain, post-laminectomy with fusion. 2. Cervicalgia status post multiple surgeries with cervical fusion. 3. Opioid-induced constipation. 4. Management of high risk medications under terms of written opioid agreement. PLAN: 1. We discussed treatment options with the patient today. The patient feels like the medicine that his current level is enables him to have sufficient analgesia with minimal side effects. He does suffer some constipation issues, but is able to manage it with tqol-rka-didwcym medications. Today, we will refill his methadone 5 mg tablets, #60 and hydrocodone 5/325, #30. This places him at 40 morphine mEq according to the CDC guidelines well under their 50. The patient will be seen in 3 months. All of his prescriptions were sent electronically to his [facility]. The patient is seen in collaboration today with Dr. Abhijit Fernando. <ELECTRONICALLY SIGNED> By: Savannah Hernandez 05/09/19 [id number] Savannah Hernandez /nt
== END ==
LOC: PAIN 05-05 06:59
DX: M54.5 Low back pain (principal); M96.1 Postlaminectomy syndrome, not elsewhere classified; M54.2 Cervicalgia; K59.03 Drug induced constipation; T40.2X5A Adverse effect of other opioids, initial encounter; Y92.89 Other specified places as the place of occurrence of the external cause

== ENCOUNTER → 2019-08-14 | Outpatient (CLI) | payer OTHER, BC ==
[~2019-08-14] VITALS: Ht 172.7 cm; Wt 74.8 kg
[2019-08-14 13:08] VITALS: BP 134/78
--- NOTE | 2019-08-14 13:25 | NUR ---
Pain Clinic Assessment: 1. History of Osteoarthritis: SPINE History of Rheumatoid Arthritis: YES PER TENA 2. Height: 5 ft. 8 in. 172.7 cm. Weight: 165.0 lb. oz. 74.844 kg. Patient's BMI: 25.1 3. Vital Signs: BP: 134/78 Pulse: 55 Resp: 14 Temp: 02 Sat: 100 ECG Mon: 4. Pain Intensity: 5 5. Fall Risk: Dizziness: N Needs help standing or walking: N Fallen in the last 3 months: N Fall risk comments: 6. Patient on Blood Thinner: None 7. History of Hypertension: Y 8. Opioid Therapy greater than 6 weeks: Y Opiate Contract Signed: 11/24/15 9. Risk Assessment Tool Provided: low-0 10. Functional Assessment Tool: 11. Recreational Drug Use: Never Drug Type: Tobacco Use: Former Smoker Tobacco Type: Amount or Packs/day: How Many Years: Alcohol Use: No Frequency: Quant:
--- NOTE | 2019-08-15 10:08 | HPC ---
[facility] [address] [place] [address] PAIN MANAGEMENT CONSULTATION Name: NAVID MACEDO Room #: REG [facility]..#: [id number] Admission: 08/14/19 Attend Phys: Saavnnah Hernandez Discharge: Date of : 48 Report #: [id number] THIS REPORT FOR: cc: Aris Santana MD,Aris Hernandez,Savannah PAIZ ~ CC: Savannah Santana DATE OF SERVICE: 08/14/2019 CHIEF COMPLAINT: Chronic low back pain, post-laminectomy with fusion. HISTORY OF PRESENT ILLNESS: This is a 68-year-old gentleman who returns to the pain clinic today for refill of his medication that he uses to help treat his ongoing low back pain and lumbar radiculopathy. Today, he reports he has been out of his meds a couple days though he has not experienced any withdrawal symptoms yet. Based on our new system of sending medicines electronically, he lost track of time and did not make a timely appointment. He states his pain is a 5/10, mostly in his lower back and bilateral legs. It is an achy numbness feeling. He reports that he is experiencing some slight foot drop on his left lower extremity. He had had this in the past and has seen doctors at [place] who he will be following up with next week in regards to this. The patient reports that weather changes and lifting and being too active does make his pain increase, but he feels the medications are appropriate in helping him control most of his pain. He denies any problems with constipation or daytime sleepiness. ALLERGIES: CONTRAST DYE AND IODINE. CURRENT LIST OF MEDICATIONS: Methadone 5 mg b.i.d., hydrocodone very sparingly, Flexeril 10 mg at bedtime, lovastatin, nabumetone, aspirin, gabapentin, omeprazole, Lopressor, quinapril, amlodipine, and Topamax. PQRS: 1. The patient has arthritic changes in his spine as well as being treated in the past for rheumatoid arthritis. 2. Height is 5 feet 8 inches, weight is 165, BMI is 25. 3. Vital signs 134/78, pulse is 55, respirations 14, oxygen sat is 100. Pain score is 5/10. Denies dizziness, does not need help walking. He has not fallen in the last 3 months. The patient is not on any blood thinners, but does take medicine for hypertension. His opioid therapy is greater than 6 weeks; therefore, an opioid signed contract is on the chart. Risk assessment tool is low. Functional assessment is 21/70. 4. Recreational drug use, he denies. He is a former smoker and does not drink alcohol. [facility] [address] [place] [address] PAIN MANAGEMENT CONSULTATION Name: NAVID MACEDO Room #: REG [facility]#: [id number] Admission: 08/14/19 Attend Phys: Savannah Hernandez Discharge: Date of : 48 Report #: [id number] According to the prescription monitoring system, he is due to fill his medicine today. He is past due to per his report as well as the PDMP. His current morphine mEq is below 50 MMEs according to the guidelines. There is a recent drug screen on the chart as well that is appropriate. PHYSICAL EXAMINATION: GENERAL: This is alert and orientated 68-year-old gentleman who appears his stated age placing his current pain score 5/10. He is a very good historian. His affect is appropriate. HEENT: Normocephalic, atraumatic. Extraocular eye muscles are intact. Mucous membranes are moist. NECK: Without adenopathy or JVD. MUSCULOSKELETAL: His lower extremity strength judged to be 4/5 on his left and 5/5 on his right. No foot drop noted today with ambulation. He does complain of tenderness in his lumbosacral region that radiates into his bilateral legs, greater on the right. He walks with a normal gait. IMPRESSION: 1. Chronic back pain, post-laminectomy with fusion. 2. Cervicalgia status post multiple surgeries with cervical fusion. 3. Management of high risk medications under terms of written opioid agreement. We reviewed the fact that opiate medications are being used to provide analgesia adequate to support activities of daily living, not attempting to achieve a specific pain score on the 0-10 Visual Analog Scale. The current opiate medications are providing sufficient analgesia to allow the patient to participate in activities of daily living. The patient is not exhibiting any aberrant behavior suggestive of drug diversion. The patient is not having any adverse reactions to medications. The patient is not suffering from daytime somnolence or mental acuity changes. The patient is managing opiate-induced constipation with appropriate tzvz-klu-mdborng agents and dietary considerations. The patient was counseled on concern for caution with operating a motor vehicle while using opiate medications. PLAN: 1. We discussed treatment options with the patient today. The patient reports he has been having occasional foot drop though on examination today it was not present. He does have a followup visit at [place] next week with his neurosurgeon Dr. Soares and his neurologist. They have seen him for years and have treated his foot drop in the past. The patient reports he will keep us posted on the updates from his visit. 2. The patient reports he does not take his Flexeril 2 times a day. He is requesting a decrease. I will electronically send his Flexeril 10 mg, #30 with one additional refill. [facility] [address] [place] [address] PAIN MANAGEMENT CONSULTATION Name: NAVID MACEDO Room #: REG [facility]#: [id number] Admission: 08/14/19 Attend Phys: Savannah Hernandez Discharge: Date of : 48 Report #: [id number] 3. We will have Dr. Abhijit Fernando send electronically his methadone 5 mg b.i.d. for today and 4-week and 8-week release and hydrocodone 5/325, #30, for today's release. The patient takes this very sparingly, 30 pills usually last him 3 months. 4. The patient is seen in collaboration with Dr. Abhijit Fernando. The patient will follow up in 3 months if not sooner based on his [facility] visit. <ELECTRONICALLY SIGNED> By: Savannah Hernandez 08/15/19 [id number] Savannah Hernandez /nt
== END ==
LOC: PAIN 07:02
DX: M54.5 Low back pain (principal); M54.2 Cervicalgia; M96.1 Postlaminectomy syndrome, not elsewhere classified; Z79.891 Long term (current) use of opiate analgesic

== ENCOUNTER → 2019-11-10 | Outpatient (CLI) | payer OTHER, BC | LOC: PAIN 07:08 | DX: M43.22 Fusion of spine, cervical region (principal); G89.29 Other chronic pain; M54.5 Low back pain; M96.1 Postlaminectomy syndrome, not elsewhere classified; F11.90 Opioid use, unspecified, uncomplicated; Z91.09 Other allergy status, other than to drugs and biological substances ==

== ENCOUNTER → 2020-01-15 | Outpatient (CLI) | payer OTHER, BC ==
[~2020-01-15] VITALS: Ht 172.7 cm; Wt 74.4 kg
[~2020-01-15] MED LIST changes: +NORCO 5-325 TA1 EAC2 PO
[2020-01-15 09:49] VITALS: BP 108/88
--- NOTE | 2020-01-15 09:53 | NUR ---
Pain Clinic Assessment: 1. History of Osteoarthritis: SPINE History of Rheumatoid Arthritis: Not Applicable 2. Height: 5 ft. 8 in. 172.7 cm. Weight: 164.0 lb. oz. 74.390 kg. Patient's BMI: 24.9 3. Vital Signs: BP: 108/88 Pulse: 74 Resp: 16 Temp: 02 Sat: 98 ECG Mon: 4. Pain Intensity: 5 5. Fall Risk: Dizziness: N Needs help standing or walking: N Fallen in the last 3 months: N Fall risk comments: 6. Patient on Blood Thinner: None 7. History of Hypertension: Y 8. Opioid Therapy greater than 6 weeks: Y Opiate Contract Signed: 11/24/15 9. Risk Assessment Tool Provided: low-0 10. Functional Assessment Tool: 11. Recreational Drug Use: Never Drug Type: Tobacco Use: Former Smoker Tobacco Type: Amount or Packs/day: How Many Years: Alcohol Use: No Frequency: Quant:
--- NOTE | 2020-01-15 14:58 | HPC ---
[facility] [address] [place] [address] PAIN MANAGEMENT CONSULTATION Name: NAVID MACEDO Room #: REG [facility]..#: [id number] Admission: 01/15/20 Attend Phys: Savannah Hernandez Discharge: Date of : 48 Report #: [id number] THIS REPORT FOR: cc: Aris Santana MD, John L. MD Hocker, Amanda CNS ~ CC: Abhijit Fernando MD DATE OF SERVICE: 01/15/2020 CHIEF COMPLAINT: Chronic low back pain, post-laminectomy with fusion. HISTORY OF PRESENT ILLNESS: This is a very pleasant gentleman who returns to the pain clinic today for refill of his opioid medication. He reports to me today that he miss calculated his days and he was out of medicine on Sunday. He reports he has not been feeling very good this week. To get to this appointment, he has been taking his hydrocodone and out of his methadone for 2-1/2 days. He states he did have some increased cramping in his arms and legs rating his pain score of 5/10. He discussed trying to come up with the new way to remember when his medications are due since they are set electronically. He is going to try to prevent this in the future. The patient does report that his pain is usually increased with weather changes and lifting heavy objects. Normally, the medication does help his pain quite significantly and is at a lower number than 5. The patient does report some family that live on his property were exposed and had tested positive for COVID. The patient and his partner were both tested. They were negative, but did quarantine, also some friends that he does take care of and is the durable power of litigation attorney were both in their 90s and tested positive. Fortunately, they both recovered and were not very sick. Patient states he is mostly staying at home throughout this outbreak. He is very worried since he is of an age and has health issues that he could become rather sick with the COVID virus. ALLERGIES: CONTRAST DYE AND IODINE. CURRENT LIST OF MEDICATIONS: Methadone 5 mg b.i.d., hydrocodone 5/325 p.r.n., Flexeril 10 mg, Lyrica 75 mg daily, lovastatin, nabumetone, aspirin, gabapentin, omeprazole, metoprolol, quinapril, amlodipine, and Topamax. PQRS: 1. He has history of osteoarthritis in his spine. Denies any rheumatoid arthritis. 2. Height is 5 feet 8 inches, weight is 164, BMI is 24. 3. Vital signs 108/88, pulse is 74, respirations 16, oxygen sat is 98, pain score is 5/10. [address] [address] PAIN MANAGEMENT CONSULTATION Name: NAVID MACEDO Room #: REG [facility].#: [id number] Admission: 01/15/20 Attend Phys: Savannah Hernandez Discharge: Date of : 48 Report #: [id number] 4. Denies dizziness, does not need help walking or standing, has not fallen in the last 3 months. 5. The patient is not on any blood thinners, but does have a history of hypertension. 6. His opioid therapy is greater than 6 weeks; therefore, an opioid signed contract is on the chart. Risk assessment tool is low. Functional assessment is 21. 7. Recreational drug use, he denies. He is a former smoker and does not drink alcohol. According to the prescription monitoring system, he is due to fill his medications today, filling them normally in a timely fashion. His morphine milliequivalent according to the CDC guidelines is 25. We will check a random drug screen on this patient at his next visit. PHYSICAL EXAMINATION: GENERAL: This is alert and orientated, very pleasant gentleman who appears his stated age. He is well-developed, well-nourished, placing his pain score at 5/10 today. HEENT: Normocephalic, atraumatic. Extraocular eye muscles are intact. He is wearing a mask. MUSCULOSKELETAL: He moves from sitting to standing position easily. His gait is stable. His pain is in his lumbosacral region that does radiate into his lower extremities. His lower extremity strength judged to be 5/5 in all major muscle groups. He has spasms in his lower calves bilaterally. Cervical range of motion is limited due to previous fusions. Straight leg raising is negative in the lower extremities today. IMPRESSION: 1. Chronic back pain, post-laminectomy with fusion. 2. Cervicalgia status post multiple surgeries with cervical fusion. 3. Management of high risk medication under terms of written opioid agreement. We reviewed the fact that opiate medications are being used to provide analgesia adequate to support activities of daily living, not attempting to achieve a specific pain score on the 0-10 Visual Analog Scale. The current opiate medications are providing sufficient analgesia to allow the patient to participate in activities of daily living. The patient is not exhibiting any aberrant behavior suggestive of drug diversion. The patient is not having any adverse reactions to medications. The patient is not suffering from daytime somnolence or mental acuity changes. The patient is managing opiate-induced constipation with appropriate gwem-twu-kahaghd agents and dietary considerations. The patient was counseled on concern for caution with operating a motor vehicle while using opiate medications. A physical exam was performed and the patient's functional status was evaluated. [address] [place] [address] PAIN MANAGEMENT CONSULTATION Name: NAVID MACEDO Room #: REG [facility].#: [id number] Admission: 01/15/20 Attend Phys: Savannah IZABEL Kaitlinahsan Discharge: Date of : 48 Report #: [id number] All patients with back pain were advised against the bed rest greater than 4 days and were advised to return to normal activities. Pain score assessment was noted and the treatment plan was reviewed with the patient. All current medications, both prescribed and OTC were reviewed and reconciled on the electronic medical record. Tobacco screening was accomplished and smoking cessation was advised when indicated. BMI was noted and diet/exercise modification was recommended for all patients following outside normal parameters. I reviewed with the patient today their responsibilities to safeguard prescription medications, reviewed their responsibility to utilize medications only as prescribed by the physician. They are to seek and receive pain medications only from 1 physician group ( [facility]). They are to use 1 pharmacy and keep the clinic informed if they change pharmacies. Their responsibilities include making followup visits in a timely fashion and to avoid abrupt discontinuation of medication usage. Their responsibilities further include bringing their medications (bottles from the pharmacy with residual pills) to the visit for possible confirmation of pill counts and the patient understands it is their responsibility to submit to random drug screens to ensure both that the medications prescribed are present, and that no other controlled substances are present. All prescriptions provided today were generated electronically. PLAN: 1. We discussed treatment options with the patient today. We discussed numerous ways to have the patient remember when to fill his prescriptions and when he needs an appointment, suggesting the ross it on his written calendar at home. He does not use electric calendar on his phone or we discussed placing it on his folder where he used to keep his written prescriptions on a date of when he needs to fill and call for an appointment. The patient will try the written calendar first. 2. We will have Dr. Abhijit Fernando send his methadone 5 mg b.i.d., #60 for today for 4-week and 8-week release to his pharmacy as well as his hydrocodone 5/325, #30. He takes these very sparingly. 3. I will send his Flexeril 10 mg tablets, #30 with one additional refill electronically as well. He has utilized this, this past week when he was without his medicines to help with his muscle spasms. 4. The patient will return in 3 months. The patient is seen in collaboration today with Dr. Abhijit Fernando. <ELECTRONICALLY SIGNED> By: Savannah Hernandez 01/15/20 [id number] Savannah Hernandez /dorita
== END ==
LOC: PAIN 06:49
PROVIDERS: ATTEND Clinical Nurse Specialist Adult Health
DX: G89.29 Other chronic pain (principal); M54.5 Low back pain; Z88.8 Allergy status to other drugs, medicaments and biological substances; Z68.24 Body mass index [BMI] 24.0-24.9, adult; Z98.1 Arthrodesis status; Z98.890 Other specified postprocedural states; Z79.891 Long term (current) use of opiate analgesic; Z79.899 Other long term (current) drug therapy

== ENCOUNTER → 2020-03-08 | Outpatient (CLI) | payer OTHER, BC ==
[~2020-03-08] VITALS: Ht 172.7 cm; Wt 73.8 kg
--- NOTE | ~2020-03-08 | HPC ---
[facility] [address] [place] [address] PAIN MANAGEMENT CONSULTATION Name: NAVID MACEDO Room #: REG [facility].#: [id number] Admission: 03/08/20 Attend Phys: Abhijit Fernando MD Discharge: Date of : 48 Report #: [id number] CC: Aris Fernando DATE OF SERVICE: 03/08/2020 Followup visit for ischial bursitis. The patient returns to pain clinic today with a request from Dr. Santana, ____ he had bursa injection. He has some pain located directly over the ischium. It has been bothersome for many months. He has trouble sitting on it and often leans to the left to take pressure off the area. It does not radiate, has a radiculopathy and has localized tenderness. He is already on strong medication for chronic opioid therapy and treatment of his post-laminectomy syndrome and he is doing well with those medicines. MEDICATIONS: Methadone, hydrocodone, Flexeril, Lyrica, lovastatin, nabumetone, aspirin, gabapentin, omeprazole, metoprolol, quinapril, amlodipine, and Topamax. ALLERGIES: CONTRAST DYE. PHYSICAL EXAMINATION: Pleasant gentleman, 5 feet 8 inches, BMI 24.7, blood pressure 158/94, heart rate 90, respirations 18, O2 sat 99. Pain intensity 3. Localized tenderness over the right ischium. It does not radiate. There is no inflammation, no redness. No palpable mass. He has good leg extension and flexion. There is good range of motion around the hip with no increased pain. No radicular symptoms whatsoever. No numbness, no tingling. Strength is normal. IMPRESSION: Ischial bursitis. This could to be a tendinitis as well from the multiple muscles that have tendinous insertion there. Gentle local injection of low concentration lidocaine with triamcinolone may provide excellent pain relief. Discussed potential risks and benefits. I told him to be very cautious about walking ____ some potential for weakness due to the proximity of the sciatic nerve at the sciatic notch. PROCEDURE: Ischial bursa injection. Skin was prepped with ChloraPrep and a 25-gauge 2-inch needle was used to infiltrate around the bursa with 7 mL solution of 0.025% lidocaine mixed with 40 mg of triamcinolone. He tolerated the procedure well. There were no complications. Pain score is 0 at discharge. Follow up planned in 1-2 months. By: [id number] Abhijit Fernando MD /nt
[2020-03-08 08:25] VITALS: BP 158/94
--- NOTE | 2020-03-08 08:36 | NUR ---
Pain Clinic Assessment: 1. History of Osteoarthritis: SPINE History of Rheumatoid Arthritis: Not Applicable 2. Height: 5 ft. 8 in. 172.7 cm. Weight: 162.6 lb. oz. 73.755 kg. Patient's BMI: 24.7 3. Vital Signs: BP: 158/94 Pulse: 90 Resp: 18 Temp: 02 Sat: 99 ECG Mon: 4. Pain Intensity: 3 5. Fall Risk: Dizziness: N Needs help standing or walking: N Fallen in the last 3 months: N Fall risk comments: 6. Patient on Blood Thinner: None 7. History of Hypertension: Y 8. Opioid Therapy greater than 6 weeks: Y Opiate Contract Signed: 11/24/15 9. Risk Assessment Tool Provided: low-0 10. Functional Assessment Tool: 11. Recreational Drug Use: Never Drug Type: Tobacco Use: Former Smoker Tobacco Type: Cigarettes Amount or Packs/day: 3 ppd How Many Years: 16 Alcohol Use: No Frequency: Quant:
== END | disposition home or self-care (01) ==
LOC: PAIN 06:51
PROVIDERS: ATTEND Anesthesiology Pain Medicine
DX: M70.71 Other bursitis of hip, right hip (principal); M54.5 Low back pain; G89.29 Other chronic pain; Z98.890 Other specified postprocedural states; Z79.899 Other long term (current) drug therapy; Z91.040 Latex allergy status; Z91.041 Radiographic dye allergy status; Z87.891 Personal history of nicotine dependence; Z79.891 Long term (current) use of opiate analgesic

== ENCOUNTER → 2020-06-28 | Outpatient (CLI) | payer OTHER, BC ==
[~2020-06-28] VITALS: Ht 172.7 cm; Wt 76.4 kg
[2020-06-28 09:49] VITALS: BP 120/62
--- NOTE | 2020-06-28 10:07 | NUR ---
Pain Clinic Assessment: 1. History of Osteoarthritis: SPINE History of Rheumatoid Arthritis: Not Applicable 2. Height: 5 ft. 8 in. 172.7 cm. Weight: 168.4 lb. oz. 76.386 kg. Patient's BMI: 25.6 3. Vital Signs: BP: 120/62 Pulse: 65 Resp: 16 Temp: 02 Sat: 98 ECG Mon: 4. Pain Intensity: 3 5. Fall Risk: Dizziness: N Needs help standing or walking: N Fallen in the last 3 months: N Fall risk comments: 6. Patient on Blood Thinner: None 7. History of Hypertension: Y 8. Opioid Therapy greater than 6 weeks: Y Opiate Contract Signed: 11/24/15 9. Risk Assessment Tool Provided: low-0 10. Functional Assessment Tool: 11. Recreational Drug Use: Never Drug Type: Tobacco Use: Former Smoker Tobacco Type: Amount or Packs/day: How Many Years: Alcohol Use: No Frequency: Quant:
--- NOTE | 2020-06-28 12:55 | HPC ---
[facility] [address] [place] [address] PAIN MANAGEMENT CONSULTATION Name: NAVID MACEDO Room #: REG [facility]..#: [id number] Admission: 06/28/20 Attend Phys: Savannah Hernandez Discharge: Date of : 48 Report #: [id number] THIS REPORT FOR: cc: Aris Santana MD, John L. MD Hocker,Savannah PAIZ ~ DATE OF SERVICE: 06/28/2020 CHIEF COMPLAINT: Chronic low back pain, post-laminectomy with fusion. HISTORY OF PRESENT ILLNESS: This is a pleasant 69-year-old gentleman who returns to the pain clinic today for renewal of his medications. Today, he is reporting a pain score 2-3 depending on the time of day, located in his lower back. It is a chronic aching sensation that changes with the weather or prolonged sitting and driving. He does report the medications are very beneficial and denies any issues of constipation. The patient is reporting 100% relief from the ischial bursa injection that Dr. Abhijit Fernando performed in March. He reports it took about 3 weeks before he realized he had no pain when sitting and was able to sit for greater periods of time. He is very thankful for that injection and feels like now he is able to do anything he would like on a daily basis with the assistance of his oral medications. ALLERGIES: CONTRAST DYE, IODINE. CURRENT LIST OF MEDICATIONS: Methadone 5 mg b.i.d., hydrocodone p.r.n., Flexeril, Lyrica, lovastatin, nabumetone, aspirin, gabapentin, omeprazole, metoprolol, quinapril, amlodipine, and topiramate. PQRS: 1. He has osteoarthritis in his spinal stenosis in his spine. Denies rheumatoid arthritis. 2. Height is 5 feet 8 inches, weight is 168, BMI is 25. 3. Vital signs 120/62, pulse is 65, respirations 16, oxygen sat is 98%. 4. Pain score is 3/10. 5. Denies dizziness, does not need assistance with ambulation or has not fallen in the last 3 months. 6. The patient is not on any blood thinners, but does take medicine for hypertension. 7. Opioid therapy is greater than 6 weeks; therefore, an opioid signed contract is on the chart. Risk assessment is low. Functional assessment is . 8. Recreational drug use, he denies. He is a former smoker and does not drink alcohol. According to the prescription monitoring system, the patient is filling [address] [address] PAIN MANAGEMENT CONSULTATION Name: REMINGTONNAVID Calero Room #: REG [facility].#: [id number] Admission: 06/28/20 Attend Phys: Savannah Hernandez Discharge: Date of : 48 Report #: [id number] appropriately. He is due to fill his medications at the beginning of July and has made a timely appointment. His morphine milliequivalent is 30 MME. There is a drug screen on the chart and we will recheck that at his next visit. PHYSICAL EXAMINATION: GENERAL: This is alert and orientated, very pleasant 69-year-old gentleman who appears his stated age, rating his pain score at 0-3 today. His affect is appropriate. HEENT: Normocephalic, atraumatic. Extraocular eye muscles are intact. He is wearing a mask. MUSCULOSKELETAL: He has tenderness in the lumbosacral region of his spine that radiates into his bilateral legs, greater on the right than the left. He has a normal gait. Strength is symmetrical bilaterally at 5/5. He moves from sitting to standing without difficulty. IMPRESSION: 1. Chronic pain, post-laminectomy syndrome. 2. Cervical neuralgia, status post multiple surgeries with cervical fusion. 3. Management of high risk medications under terms of written opioid agreement. PLAN: 1. We discussed treatment options with the patient today. The patient found the bursa injection is 100% beneficial from Dr. Abhijit Fernando. He is grateful for that injection and is able to be as active as he is able now and has very minimal pain due to taking his oral medications daily. We will have Dr. Abhijit Fernando continue him on his methadone 5 mg twice a day and send medications electronically for 3 months as well as hydrocodone 5/325 that he takes very sparingly when he is going to be more active than normal. I will send his Flexeril 10 mg, #30 with one additional refill. He uses these at night on an as needed basis for increased muscle spasms. 2. The patient is trying to obtain the COVID vaccination. I encouraged him to ask his [facility] where he is filling. He has filled out the questionnaire for the [facility] COVID vaccine and hopeful to hear back from them. The patient will continue to try various places to schedule his vaccination. 3. The patient is seen today in collaboration with Dr. Abhijit Fernando. He will return in 3 months. <ELECTRONICALLY SIGNED> By: Savannah Hernandez 06/28/20 1255 1122 1148 Savannah Hernandez /nt
== END ==
LOC: PAIN 06:47
PROVIDERS: ATTEND Clinical Nurse Specialist Adult Health
DX: M96.1 Postlaminectomy syndrome, not elsewhere classified (principal); G58.8 Other specified mononeuropathies; Z79.891 Long term (current) use of opiate analgesic; Z79.899 Other long term (current) drug therapy

== ENCOUNTER → 2020-10-04 | Outpatient (CLI) | payer OTHER ==
[~2020-10-04] VITALS: Ht 172.7 cm; Wt 73.6 kg
[~2020-10-04] MED LIST changes: +CENTRUM MEN'S1 EACH PO; +NORCO5 PO
[2020-10-04 09:01] VITALS: BP 111/59
--- NOTE | 2020-10-04 09:09 | NUR ---
Pain Clinic Assessment: 1. History of Osteoarthritis: SPINE History of Rheumatoid Arthritis: Not Applicable 2. Height: 5 ft. 8 in. 172.7 cm. Weight: 162.2 lb. oz. 73.573 kg. Patient's BMI: 24.7 3. Vital Signs: BP: 111/59 Pulse: 71 Resp: 16 Temp: 02 Sat: 97 ECG Mon: 4. Pain Intensity: 2 5. Fall Risk: Dizziness: N Needs help standing or walking: N Fallen in the last 3 months: N Fall risk comments: 6. Patient on Blood Thinner: None 7. History of Hypertension: Y 8. Opioid Therapy greater than 6 weeks: Y Opiate Contract Signed: 11/24/15 9. Risk Assessment Tool Provided: low-0 10. Functional Assessment Tool: 11. Recreational Drug Use: Never Drug Type: Tobacco Use: Former Smoker Tobacco Type: Amount or Packs/day: How Many Years: Alcohol Use: No Frequency: Quant:
== END ==
LOC: PAIN 06:56
PROVIDERS: ATTEND Clinical Nurse Specialist Adult Health
DX: Z76.0 Encounter for issue of repeat prescription (principal); G58.8 Other specified mononeuropathies; M54.5 Low back pain; G89.29 Other chronic pain; I10 Essential (primary) hypertension; Z79.899 Other long term (current) drug therapy; Z79.891 Long term (current) use of opiate analgesic; Z87.891 Personal history of nicotine dependence

== ENCOUNTER → 2021-01-10 | Outpatient (CLI) | payer OTHER, BC ==
[~2021-01-10] VITALS: Ht 172.7 cm; Wt 71.4 kg
[~2021-01-10] MED LIST changes: +CRESTOR5 MG PO
[2021-01-10 08:54] VITALS: BP 102/57
--- NOTE | 2021-01-10 09:14 | NUR ---
Pain Clinic Assessment: 1. History of Osteoarthritis: SPINE History of Rheumatoid Arthritis: Not Applicable 2. Height: 5 ft. 8 in. 172.7 cm. Weight: 157.4 lb. oz. 71.396 kg. Patient's BMI: 23.9 3. Vital Signs: BP: 102/57 Pulse: 69 Resp: 14 Temp: 02 Sat: 100 ECG Mon: 4. Pain Intensity: 4 5. Fall Risk: Dizziness: Y Needs help standing or walking: N Fallen in the last 3 months: N Fall risk comments: 6. Patient on Blood Thinner: None 7. History of Hypertension: Y 8. Opioid Therapy greater than 6 weeks: Y Opiate Contract Signed: 01/10/21 9. Risk Assessment Tool Provided: low-0 10. Functional Assessment Tool: 11. Recreational Drug Use: Never Drug Type: Tobacco Use: Former Smoker Tobacco Type: Amount or Packs/day: How Many Years: 20 Alcohol Use: No Frequency: Quant:
== END ==
LOC: PAIN 06:58
PROVIDERS: ATTEND Clinical Nurse Specialist Adult Health
DX: G89.29 Other chronic pain (principal); M96.1 Postlaminectomy syndrome, not elsewhere classified; R51.9 Headache, unspecified; G62.9 Polyneuropathy, unspecified; Z98.1 Arthrodesis status; Z88.8 Allergy status to other drugs, medicaments and biological substances; Z79.891 Long term (current) use of opiate analgesic; Z79.899 Other long term (current) drug therapy; Z87.891 Personal history of nicotine dependence

== ENCOUNTER → 2021-03-23 | Outpatient (CLI) | payer OTHER, BC ==
[~2021-03-23] MED LIST changes: -AMLODIPINE BESYL5 MG PO; +ASPIRIN EC81 M1 PO; -ASPIRIN81 M2 PO; +FLOMAX0.4 MG PO; -LOPRESSOR 50 MG50 M1 PO; +LOPRESSOR50 PO; +NORVASC5 MG PO
== END ==
LOC: LAB 05:46 → PAC 08:42
PROVIDERS: ATTEND Student in an Organized Health Care Education/Training Program
DX: Z01.812 Encounter for preprocedural laboratory examination (principal); Z20.822 Contact with and (suspected) exposure to COVID-19

== ENCOUNTER → 2021-03-25 | Outpatient (CLI) | payer OTHER, BC ==
[~2021-03-25] VITALS: Ht 175.3 cm; Wt 70.3 kg
[~2021-03-25] MED LIST changes: +HYDROCODON-ACE1 EAC7 PO
--- NOTE | 2021-03-29 12:07 | PATH ---
[facility] [address] [place] [address] PATHOLOGY RPT PROCEDURE Name: NAVID MACEDO Room #: REG [facility] M.R.#: [id number] Admission: 03/25/21 Date of : 48 Discharge: Report #: [id number] Path Case #: [id number] [facility] Accession Number: [id number] . 01 Material submitted: . colon - ASCENDING COLON POLYP. Modifiers: ascending . 01 Clinical history: . COLONOSCOPY ANEMIA . 02 Diagnosis: Polyp, ascending colon polyp, endoscopic biopsy: - Polypoid mucosa with lymphoid aggregate. - Negative for dysplasia. 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 02 Electronically signed: . April Trujillo MD, Pathologist NPI- [id number] . 01 Gross description: . The specimen is received in formalin, labeled "Short, Navid, ascending colon polyp". Received is a single segment of pale sinclair tissue measuring 0.4 cm in maximum dimensions. The specimen is submitted entirely in cassette A1. ([facility]; 03/25/2021) NRI/NRI 03/25/2021 1826 Local . 02 Pathologist provided ICD-10: Z12.11, D64.9 . 02 CPT . 772343 Specimen Comment: A courtesy copy of this report has been sent to [phone], [facility]-76- Specimen Comment: [id number] Specimen Comment: Report sent to / DR BERNARD Specimen Comment: A duplicate report has been generated due to demographic updates. Performed at: 01 [facility] [address] [facility] [address], [place] [id number] MD Cesar Wagner MD Phone: [phone] Performed at: 02 [facility] [address] [place] [address] PATHOLOGY RPT PROCEDURE Name: NAVID MACEDO Room #: REG [facility]#: [id number] Admission: 03/25/21 Date of : 48 Discharge: Report #: [id number] Path Case #: [id number] [address] [place] [id number] MD April Trujillo MD Phone: [phone]
--- NOTE | 2021-03-30 08:12 | P ---
[facility] [place] [address] PROCEDURE REPORT Name: NAVID MACEDO Room #: REG [facility]#: [id number] Admission: 03/25/21 Attend Phys: Melecio Barlow Discharge: Date of : 48 Report #: [id number] THIS REPORT FOR: cc: Aris Santana MD, John L. MD McElhinney, Christian C. MD ~ cc: Aris Santana MD DATE OF SERVICE: 03/25/2021 PROCEDURE PERFORMED: Colonoscopy with biopsies. HISTORY OF PRESENT ILLNESS: The patient is a 70-year-old male with a history of anemia. He denies any obvious blood in his stools. 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 Biopsies were negative, otherwise normal. The patient is on PPI therapy. No family history of colon cancer. Plan is for colonoscopy. DESCRIPTION OF PROCEDURE: The risks and benefits of the procedure were explained to the patient, those risks including, but not limited to bleeding, perforation and the risk of sedation. He understood these risks and gave informed consent. Sedation was given using propofol per anesthesia. Next, a digital rectal exam was initially performed, which was normal. Next, using a standard Olympus colonoscope, the scope was placed in the patient's anus and advanced under direct vision to the cecum. The overall prep was good. The cecum and ileocecal valve were normal in appearance. In the ascending colon, a 4 mm sessile polyp was noted. This was removed by cold forceps, otherwise normal. The transverse and descending colon were normal. A few small diverticula were noted in the sigmoid colon. No evidence of inflammation. The rectal mucosa was normal. On retroflexion, no abnormalities were noted. The scope was then withdrawn and the procedure terminated. The patient tolerated the procedure well. IMPRESSION: 1. Small colonic polyp. 2. Mild sigmoid diverticulosis. 3. Otherwise, normal colonoscopy. RECOMMENDATIONS: 1. Await biopsy results. 2. If polyp is hyperplastic, repeat in 10 years; if adenomatous polyp, repeat in 5 years. 3. Would recommend Hemoccult testing stools. 4. If positive, then consider M2 capsule endoscopy. [address] [address] PROCEDURE REPORT Name: NAVID MACEDO Room #: REG [facility] Chip#: [id number] Admission: 03/25/21 Attend Phys: Melecio Barlow Discharge: Date of : 48 Report #: [id number] Thank you for allowing me to participate in his care. <ELECTRONICALLY SIGNED> By: Melecio Azevedo MD 03/30/21 0812 1020 1341 Melecio Azevedo MD /nt
== END | disposition home or self-care (01) ==
LOC: GI
PROVIDERS: ATTEND Specialist
DX: D64.9 Anemia, unspecified (principal); K63.5 Polyp of colon; K57.30 Diverticulosis of large intestine without perforation or abscess without bleeding; I10 Essential (primary) hypertension; E11.9 Type 2 diabetes mellitus without complications; E78.00 Pure hypercholesterolemia, unspecified; Z98.890 Other specified postprocedural states; Z79.899 Other long term (current) drug therapy; Z85.828 Personal history of other malignant neoplasm of skin; Z87.891 Personal history of nicotine dependence; Z96.643 Presence of artificial hip joint, bilateral
CPT/HCPCS: 62110; 62900

== ENCOUNTER → 2021-03-31 | Outpatient (CLI) | payer OTHER, BC ==
[~2021-03-31] VITALS: Ht 172.7 cm; Wt 69.6 kg
[2021-03-31 13:22] VITALS: BP 165/85
--- NOTE | 2021-03-31 13:48 | NUR ---
Pain Clinic Assessment: 1. History of Osteoarthritis: SPINE History of Rheumatoid Arthritis: Not Applicable 2. Height: 5 ft. 8 in. 172.7 cm. Weight: 153.4 lb. oz. 69.582 kg. Patient's BMI: 23.3 3. Vital Signs: BP: 165/85 Pulse: 68 Resp: 14 Temp: 02 Sat: 100 ECG Mon: 4. Pain Intensity: 7 5. Fall Risk: Dizziness: N Needs help standing or walking: N Fallen in the last 3 months: Y Fall risk comments: 6. Patient on Blood Thinner: None 7. History of Hypertension: Y 8. Opioid Therapy greater than 6 weeks: Y Opiate Contract Signed: 01/10/21 9. Risk Assessment Tool Provided: low-0 10. Functional Assessment Tool: 11. Recreational Drug Use: Never Drug Type: Tobacco Use: Former Smoker Tobacco Type: Amount or Packs/day: How Many Years: Alcohol Use: No Frequency: Quant:
== END ==
LOC: PAIN 12:43
PROVIDERS: ATTEND Clinical Nurse Specialist Adult Health
DX: M54.2 Cervicalgia (principal); M54.50 Low back pain, unspecified; M96.1 Postlaminectomy syndrome, not elsewhere classified; M25.552 Pain in left hip; Z88.8 Allergy status to other drugs, medicaments and biological substances; Z79.899 Other long term (current) drug therapy

== ENCOUNTER → 2021-07-04 | Outpatient (CLI) | payer OTHER, BC ==
[~2021-07-04] VITALS: Ht 172.7 cm; Wt 69.9 kg
[~2021-07-04] MED LIST changes: +HYDROCODONE-AP1 EACH PO
[2021-07-04 09:02] VITALS: BP 146/80
--- NOTE | 2021-07-04 09:35 | NUR ---
Pain Clinic Assessment: 1. History of Osteoarthritis: SPINE History of Rheumatoid Arthritis: Not Applicable 2. Height: 5 ft. 8 in. 172.7 cm. Weight: 154.0 lb. oz. 69.854 kg. Patient's BMI: 23.4 3. Vital Signs: BP: 146/80 Pulse: 89 Resp: 14 Temp: 02 Sat: 97 ECG Mon: 4. Pain Intensity: 7 5. Fall Risk: Dizziness: N Needs help standing or walking: Y Fallen in the last 3 months: Y Fall risk comments: 6. Patient on Blood Thinner: None 7. History of Hypertension: Y 8. Opioid Therapy greater than 6 weeks: Y Opiate Contract Signed: 01/10/21 9. Risk Assessment Tool Provided: low-0 10. Functional Assessment Tool: 11. Recreational Drug Use: Never Drug Type: Tobacco Use: Former Smoker Tobacco Type: Amount or Packs/day: How Many Years: Alcohol Use: No Frequency: Quant:
== END ==
LOC: PAIN 08:19
PROVIDERS: ATTEND Clinical Nurse Specialist Adult Health
DX: M54.2 Cervicalgia (principal); M25.552 Pain in left hip; M79.605 Pain in left leg; Z87.891 Personal history of nicotine dependence; Z88.8 Allergy status to other drugs, medicaments and biological substances; Z79.899 Other long term (current) drug therapy